=== PATIENT | male | born 1945 | race Caucasian/White ===

== ENCOUNTER → 2017-09-27 | Outpatient (CLI) | payer BC, MEDICARE ==
[~2017-09-27] MED LIST: IBUPROFEN400 MG PO; LORAZEPAM INJ 2 MG/ML VIAL ONE; LOTREL 10-40 M1 EACH PO; NORCO 7.5-3251 EACH PO; ULTRACET TABLE1 EACH PO
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
== END ==
LOC: MRI 08:03
PROVIDERS: ATTEND Specialist
DX: S46.092A Other injury of muscle(s) and tendon(s) of the rotator cuff of left shoulder, initial encounter (principal)
CPT/HCPCS: 73221; J2060

== ENCOUNTER → 2017-10-13 | Day surgery (SDC) | payer BC, MEDICARE ==
[2017-10-11 14:09] LABS: BASOPHILS # (AUTO) 0.1 (0.0-0.1); EOSINOPHILS # (AUTO) 0.2 (0.0-0.4); EOSINOPHILS % 2.4 % (0.0-6.0); HEMATOCRIT 42.5 % (38.2-49.6); HEMOGLOBIN 14.4 g/dL (14.0-18.0); LYMPHOCYTES # (AUTO) 2.8 (1.0-3.2); LYMPHOCYTES % 34.3 % (18.0-39.1); MEAN CORPUSCULAR HEMOGLOBIN 30.4 pg (28-32); MEAN CORPUSCULAR HGB CONC 33.9 g/dL (31-35); MEAN CORPUSCULAR VOLUME 89.9 fL (81-99); MONOCYTES # (AUTO) 0.8 (0.2-0.8); MONOCYTES % 9.9 % (4.4-11.3); NEUTROPHILS # (AUTO) 4.3 (2.1-6.9); PLATELET COUNT 245 x10e3/uL (140-360); RED BLOOD COUNT 4.73 x10e6/uL (4.3-5.7)
--- NOTE | 2017-10-11 14:44 | Diagnostic Imaging Report ---
PROCEDURE: Frontal and lateral views of the chest. COMPARISON: 04/08/16 INDICATIONS: PRE OPERATIVE CHEST X-RAY FOR SHOULDER SURGERY FINDINGS: Lines/tubes: None. Lungs: The lungs are well inflated and clear. There is no evidence of pneumonia or pulmonary edema. Pleura: There is no pleural effusion or pneumothorax. Heart and mediastinum: The heart and the mediastinum are normal. Bones: No acute bony abnormality. IMPRESSION: 1. No acute cardiopulmonary disease. Dictated by: Levon Mendoza M.D. on 10/11/2017 at 14:52 Electronically approved by: Levon Mendoza M.D. on 10/11/2017 at 14:52
[~2017-10-13] MED LIST changes: +ACETAMINOPHEN 1000 MG/100 ML 100 ML IV ONE; +BENAZ PO; +CEFAZOLIN SOD 2 GM/D5W 50ML 50 ML IV ONE; +DEXAMETHASONE SOD PHOS INJ 4 MG/ML VIAL ONE; +EPHEDRINE SULFATE INJ 50 MG/10 ML SYR ONE; +FENTANYL CITRATE/PF 100MCG/2 ML INJ ONE; +GLYCOPYRROLATE INJ 1MG/ 5 ML SYR ONE; +KETOROLAC TROMETHAMINE 30 MG/ML VIAL ONE; +LIDOCAINE 2%/ EPINEPHRINE 20ML MDV ONE; +LIDOCAINE HCL 2% JELLY 5 ML TUBE ONE; +LIDOCAINE HCL 2% LOCAL INJ 5 ML SDV VIAL INJ ONE; +LISINOPRIL PO; -LORAZEPAM INJ 2 MG/ML VIAL ONE; +LOTREL 10-20 M1 EACH PO; +MIDAZOLAM HCL 2 MG/2 ML VIAL ONE; +NEOSTIGMINE 5 MG/5ML SYR ONE; +ONDANSETRON HCL INJ 2 MG/ML VIAL ONE; +PROPOFOL IV EMULSION 10 MG/ML 20 ML VIAL ONE; +ROCURONIUM BROMIDE 10 MG/ML 5ML VIAL ONE; +ROPIVACAINE 0.5% 5 MG/ML 30 ML SDV ONE; +SEVOFLURANE INHAL SOLN 250 ML PEN BTL ONE
--- NOTE | 2017-10-14 11:22 | Operative Report ---
DATE OF PROCEDURE: October 13, 2017 PREOPERATIVE DIAGNOSES 1. Left shoulder rotator cuff tear. 2. Left shoulder acromioclavicular joint arthrosis. POSTOPERATIVE DIAGNOSES 1. Left shoulder rotator cuff tear. 2. Left shoulder acromioclavicular joint arthrosis. 3. Left shoulder synovitis. 4. Left shoulder partial labral tear. PROCEDURES PERFORMED 1. Left shoulder examination under anesthesia. 2. Left shoulder arthroscopy. 3. Left shoulder debridement of synovitis. 4. Left shoulder debridement of a partial labral tear. 5. Left shoulder arthroscopic rotator cuff reconstruction. 6. Left shoulder arthroscopic subacromial decompression and acromioplasty. 7. Left shoulder arthroscopic distal clavicle resection. RETAIL CASHIER ASSOCIATE: Nicole Pang. ANESTHESIA: General endotracheal intubation anesthesia. IV FLUIDS: Per the anesthesia record. DESCRIPTION OF PROCEDURE: Mr. Richard was taken to the operating room and placed in the supine position on the operating table. Following induction of general anesthesia as well as endotracheal intubation, the patient's left upper extremity was examined under anesthesia. He was found to have a normal-appearing shoulder. He had full passive range of motion of the shoulder joint. No evidence of instability. The patient's upper extremity was prepped and draped in the standard surgical fashion. Standard posterolateral and anterior portals were created without difficulty. The scope was placed within the shoulder joint atraumatically. Examination of the glenohumeral articulation demonstrated no significant evidence of chondromalacia. The biceps tendon was found to be contained within the shoulder joint. There were no loose bodies within the shoulder joint. The patient had a near full-thickness rotator cuff tear at the leading edge of the rotator cuff tissue. There were also diffuse synovitis and fraying and partial tearing of the anterior labrum. A shaver was placed in the shoulder joint, and the patient's synovitis was debrided. The labral injury was also debrided at this time. The shaver was then used to debride the partially torn rotator cuff tear. The tear was then completed, and a shaver was used to debride the insertion site to a bleeding bony bed. Once this was achieved, the scope was placed in the subacromial space. A lateral portal was created through an outside-in technique. Significant bursal inflammation was encountered in the subacromial space. A shaver was used to debride the bursa. The patient's rotator cuff injury was easily identified. A shaver was used to further debride the rotator cuff injury as well as to debride the bone to a bleeding bony bed. A single triple-loaded suture anchor was then inserted into the greater tuberosity, and the suture arms from that anchor were then woven through the rotator cuff tissue. The rotator cuff tissue was then advanced and tied firmly repairing the injury. The patient had a downward-sloping acromion. The coracoacromial ligament was resected. An aggressive acromioplasty was performed. The anterior portal was transferred to the subacromial space, and a 1-cm section of the distal clavicle was also resected at this time. The shoulder was then deflated of its normal saline. The portal sites were closed. Sterile dressings were applied. The patient was provided a shoulder immobilizer, awakened and taken to the post anesthesia care unit in stable condition. Nicole Pang acted as first aid officer for this case and was necessary for both prepping and draping of the patient as well as the positioning of the arm and passage of suture that allowed this case to be successful. Job#: [id number]
== END | disposition home or self-care (01) ==
LOC: OR 08:15
PROVIDERS: ATTEND Specialist
DX: S46.092A Other injury of muscle(s) and tendon(s) of the rotator cuff of left shoulder, initial encounter (principal); S43.432A Superior glenoid labrum lesion of left shoulder, initial encounter; M19.012 Primary osteoarthritis, left shoulder; M65.812 Other synovitis and tenosynovitis, left shoulder; I10 Essential (primary) hypertension; F17.200 Nicotine dependence, unspecified, uncomplicated; X58.XXXA Exposure to other specified factors, initial encounter; Z01.810 Encounter for preprocedural cardiovascular examination; Z01.812 Encounter for preprocedural laboratory examination; Z01.818 Encounter for other preprocedural examination; Z86.19 Personal history of other infectious and parasitic diseases
CPT/HCPCS: 29824; 29826; 29827; 36415; 71020; 85025; 93005; C1713; C1762; J1100; J1885; J2001 ×3; J2250; J2405; J2795; 71046

== ENCOUNTER → 2018-01-10 | Outpatient (RCR) | payer MEDICARE, BC ==
[~2018-01-10] MED LIST changes: -ACETAMINOPHEN 1000 MG/100 ML 100 ML IV ONE; -CEFAZOLIN SOD 2 GM/D5W 50ML 50 ML IV ONE; -DEXAMETHASONE SOD PHOS INJ 4 MG/ML VIAL ONE; -EPHEDRINE SULFATE INJ 50 MG/10 ML SYR ONE; -FENTANYL CITRATE/PF 100MCG/2 ML INJ ONE; -GLYCOPYRROLATE INJ 1MG/ 5 ML SYR ONE; -KETOROLAC TROMETHAMINE 30 MG/ML VIAL ONE; -LIDOCAINE 2%/ EPINEPHRINE 20ML MDV ONE; -LIDOCAINE HCL 2% JELLY 5 ML TUBE ONE; -LIDOCAINE HCL 2% LOCAL INJ 5 ML SDV VIAL INJ ONE; -MIDAZOLAM HCL 2 MG/2 ML VIAL ONE; -NEOSTIGMINE 5 MG/5ML SYR ONE; -ONDANSETRON HCL INJ 2 MG/ML VIAL ONE; -PROPOFOL IV EMULSION 10 MG/ML 20 ML VIAL ONE; -ROCURONIUM BROMIDE 10 MG/ML 5ML VIAL ONE; -ROPIVACAINE 0.5% 5 MG/ML 30 ML SDV ONE; -SEVOFLURANE INHAL SOLN 250 ML PEN BTL ONE
== END ==
LOC: PT 12-28 12:41
PROVIDERS: ATTEND Specialist
DX: S43.422A Sprain of left rotator cuff capsule, initial encounter (principal)
CPT/HCPCS: 97010 ×2; 97110 ×7; 97140 ×4; 97161; G8984; G8985

== ENCOUNTER 2018-02-09 10:00 | Outpatient (RCR) | payer MEDICARE, BC | END 2018-02-10 | LOC: PT 10:00 | PROVIDERS: ATTEND Specialist | DX: M75.102 Unspecified rotator cuff tear or rupture of left shoulder, not specified as traumatic (principal); M25.512 Pain in left shoulder; M25.612 Stiffness of left shoulder, not elsewhere classified; M62.81 Muscle weakness (generalized) | CPT/HCPCS: 97110 ×13; 97139 ×2; 97140 ×9; G8984 ×2; G8985 ×2 ==

== ENCOUNTER 2018-03-11 09:54 | Outpatient (RCR) | payer MEDICARE, BC | END 2018-03-12 | LOC: PT 09:54 | PROVIDERS: ATTEND Specialist | DX: S46.012A Strain of muscle(s) and tendon(s) of the rotator cuff of left shoulder, initial encounter (principal); M25.512 Pain in left shoulder; M25.612 Stiffness of left shoulder, not elsewhere classified; M62.81 Muscle weakness (generalized) | CPT/HCPCS: 97110 ×11; 97140 ×7; G8984; G8985 ==

== ENCOUNTER 2018-03-28 09:53 | Outpatient (RCR) | payer MEDICARE, BC | END 2018-04-12 | LOC: PT 09:53 | PROVIDERS: ATTEND Specialist | DX: M75.102 Unspecified rotator cuff tear or rupture of left shoulder, not specified as traumatic (principal); M25.512 Pain in left shoulder; M25.612 Stiffness of left shoulder, not elsewhere classified ==